=== PATIENT | female | born 1950 | race Caucasian/White ===

== ENCOUNTER → 2016-04-22 | Outpatient (CLI) | payer OTHER, MEDICARE ==
[~2016-04-22] MED LIST: *BLDWK7; *MAMMOGRAM; /PANT40TA PO; AMO500 PO; AMOXIL875 PO; ANAPROX DS PO; ASPI325T PO; AUG875 PO; BACTRIMDS PO; CIPRO250 PO; COLA100C2; DARVOCET-N PO; ENALAPRIL/HCTZ; FEVE325S PO; FLONASESPR NASAL; KEFLEX250 PO; LOPR50TA PO; MEVACOR40 PO; MILKSUS; MULTIVIT; PAIN325T PO; PERC5TAB8; POTA20TA2; TYLENOL#3 PO; VALTREX100 PO; [UNRECOGNIZED DRUG - OTHER]; [UNRECOGNIZED DRUG - OTHER] PO
[2016-04-22 19:28] LABS: ALKALINE PHOSPHATASE 66 U/L (45-117); ALT/SGPT 29 U/L (12-78); ANION GAP 9 MEQ/L (8-16); AST/SGOT 26 U/L (15-37); BILIRUBIN,TOTAL 0.8 MG/DL (0.2-1.0); BLOOD UREA NITROGEN 18 MG/DL (7-18); CALCIUM LEVEL 9.1 MG/DL (8.8-10.2); CARBON DIOXIDE LEVEL 29 MEQ/L (21-32); CHLORIDE LEVEL 107 MEQ/L (98-107); CHOLESTEROL LEVEL 268 MG/DL (<200); CREATININE FOR GFR 0.81 MG/DL (0.55-1.02); GLOMERULAR FILTRATION RATE > 60.0 (>45); GLUCOSE, FASTING 88 MG/DL (80-110); POTASSIUM SERUM 3.9 MEQ/L (3.5-5.1); SODIUM LEVEL 145 MEQ/L (136-145); TRIGLYCERIDES LEVEL 64 MG/DL (<150)
[2016-04-22 19:29] LABS: ALBUMIN 3.9 GM/DL (3.2-5.2); TOTAL PROTEIN 6.9 GM/DL (6.4-8.2)
== END ==
LOC: M WUC 08:15
PROVIDERS: ATTEND Family Medicine
DX: I10 Essential (primary) hypertension (principal); E78.2 Mixed hyperlipidemia; E55.9 Vitamin D deficiency, unspecified

== ENCOUNTER → 2016-04-25 | Outpatient (REF) | payer BC, MEDICARE, OTHER ==
[2016-04-25 12:48] LABS: MEAN CORPUSCULAR HEMOGLOBIN 29.5 pg (27.0-33.0); MEAN CORPUSCULAR HGB CONC 33.9 g/dl (32.0-36.5); RED CELL DISTRIBUTION WIDTH 12.4 % (11.5-14.5); WHITE BLOOD COUNT 8.8 K/mm3 (4.0-10.0)
[2016-04-25 13:08] LABS: FOLATE > 24.0 NG/ML (>5.4); VITAMIN B12 LEVEL 637 PG/ML (247-911)
[2016-04-25 13:09] LABS: FREE T4 1.11 NG/DL (0.76-1.46)
== END ==
LOC: M SFHCADAM 10:03
PROVIDERS: ATTEND Family Medicine
DX: F01.50 Vascular dementia, unspecified severity, without behavioral disturbance, psychotic disturbance, mood disturbance, and anxiety (principal); Z87.39 Personal history of other diseases of the musculoskeletal system and connective tissue; I10 Essential (primary) hypertension; J30.9 Allergic rhinitis, unspecified
CPT/HCPCS: 82607; 82746; 84439; 84443; 85027; 85652; 90662; 90670; G0008; G0009; G0463

== ENCOUNTER → 2016-05-04 | Outpatient (CLI) | payer MEDICARE, OTHER ==
--- NOTE | 2016-05-05 08:27 | REP ---
MRI BRAIN WITHOUT CONTRAST: HISTORY: Vascular dementia. Scattered punctate areas of increased signal intensity on T2-weighted images are present in the periventricular and subcortical white matter and jorge. This represents small vessel ischemic disease. There is no intraparenchymal hemorrhage, infarct, mass or midline shift. The sella turcica is empty. The ventricular system and cortical sulci as well as subarachnoid space in the posterior fossa are dilated consistent with mild volume loss. There is no extracerebral collection. A retention cyst is present in the left maxillary sinus. IMPRESSION: 1. Minimal small vessel ischemic disease. 2. Mild volume loss. Signed by Kt Stokes MD 05/05/2016 08:29 A
== END ==
LOC: M RAD 17:25
PROVIDERS: ATTEND Family Medicine
DX: F01.50 Vascular dementia, unspecified severity, without behavioral disturbance, psychotic disturbance, mood disturbance, and anxiety (principal)
CPT/HCPCS: 70553; A9576

== ENCOUNTER → 2016-08-24 | Outpatient (REF) | payer OTHER ==
[2016-08-24 15:14] LABS: BASO # 0.1 K/mm3 (0.0-0.2); BASO % 0.6 % (0.0-1.0); EOS % 0.2 % (0.0-3.0); LARGE UNSTAINED CELL # 0.6 K/mm3 (0.0-0.4); LARGE UNSTAINED CELL % 6.1 % (0.0-4.0); LYMPH # 3.1 K/mm3 (1.5-4.5); LYMPH % 26.5 % (24.0-44.0); MEAN CORPUSCULAR HEMOGLOBIN 30.2 pg (27.0-33.0); MEAN CORPUSCULAR VOLUME 88.7 fl (80.0-96.0); MONO # 0.8 K/mm3 (0.0-0.8); MONO % 8.4 % (0.0-5.0); NEUTROPHILS # 5.5 K/mm3 (1.8-7.7); NEUTROPHILS % 58.1 % (36.0-66.0); PLATELET COUNT, AUTOMATED 308 k/mm3 (150-450); RED CELL DISTRIBUTION WIDTH 12.6 % (11.5-14.5); WHITE BLOOD COUNT 9.5 K/mm3 (4.0-10.0)
[2016-08-24 15:27] LABS: ALBUMIN 4.2 GM/DL (3.2-5.2); ALBUMIN/GLOBULIN RATIO 1.31 (1.00-1.93); ALKALINE PHOSPHATASE 68 U/L (45-117); ALT/SGPT 33 U/L (12-78); ANION GAP 8 MEQ/L (8-16); AST/SGOT 28 U/L (15-37); BILIRUBIN,TOTAL 0.8 MG/DL (0.2-1.0); BLOOD UREA NITROGEN 13 MG/DL (7-18); CALCIUM LEVEL 9.8 MG/DL (8.8-10.2); CARBON DIOXIDE LEVEL 32 MEQ/L (21-32); CHLORIDE LEVEL 101 MEQ/L (98-107); CREATININE FOR GFR 0.79 MG/DL (0.55-1.02); FREE T4 1.15 NG/DL (0.76-1.46); GLOMERULAR FILTRATION RATE > 60.0 (>45); GLUCOSE, FASTING 98 MG/DL (80-110); POTASSIUM SERUM 3.4 MEQ/L (3.5-5.1); SODIUM LEVEL 141 MEQ/L (136-145); TOTAL PROTEIN 7.4 GM/DL (6.4-8.2)
[2016-08-24 15:41] LABS: ERYTHROCYTE SEDIMENTATION RATE 10 mm/hr (0-30)
[2016-08-24 15:49] LABS: VITAMIN B12 LEVEL 563 PG/ML (247-911)
[2016-08-24 15:50] LABS: FOLATE > 24.0 NG/ML (>5.4)
[2016-08-29 00:06] LABS: VITAMIN E LEVEL 12.4 mg/L (6.5-21.5)
== END ==
LOC: M LABNEURO 13:22
PROVIDERS: ATTEND Psychiatry & Neurology Neurology
DX: R41.3 Other amnesia (principal); Z13.29 Encounter for screening for other suspected endocrine disorder; Z13.1 Encounter for screening for diabetes mellitus; Z11.3 Encounter for screening for infections with a predominantly sexual mode of transmission; Z79.899 Other long term (current) drug therapy

== ENCOUNTER → 2017-04-04 | Outpatient (REF) | payer OTHER, MEDICARE ==
[2017-04-04 20:50] LABS: HEMATOCRIT 39.9 % (36.0-47.0); HEMOGLOBIN 13.2 g/dl (12.0-16.0); MEAN CORPUSCULAR HEMOGLOBIN 29.1 pg (27.0-33.0); MEAN CORPUSCULAR HGB CONC 33.1 g/dl (32.0-36.5); MEAN CORPUSCULAR VOLUME 88.1 fl (80.0-96.0); PLATELET COUNT, AUTOMATED 255 10^3/uL (150-450); RED BLOOD COUNT 4.53 10^6/uL (4.00-5.40); RED CELL DISTRIBUTION WIDTH 12.3 % (11.5-14.5); WHITE BLOOD COUNT 9.1 10^3/uL (4.0-10.0)
[2017-04-04 21:20] LABS: ALBUMIN/GLOBULIN RATIO 1.33 (1.00-1.93); ALKALINE PHOSPHATASE 79 U/L (45-117); ALT/SGPT 34 U/L (12-78); ANION GAP 5 MEQ/L (8-16); AST/SGOT 25 U/L (7-37); BILIRUBIN,TOTAL 0.3 MG/DL (0.2-1.0); BLOOD UREA NITROGEN 23 MG/DL (7-18); CALCIUM LEVEL 9.1 MG/DL (8.8-10.2); CARBON DIOXIDE LEVEL 35 MEQ/L (21-32); CHLORIDE LEVEL 102 MEQ/L (98-107); CHOLESTEROL LEVEL 252 MG/DL (<200); CHOLESTEROL RISK RATIO 3.876 (<5); CREATININE FOR GFR 0.71 MG/DL (0.55-1.02); FREE T4 0.89 NG/DL (0.76-1.46); GLOMERULAR FILTRATION RATE > 60.0 (>45); GLUCOSE, FASTING 88 MG/DL (80-110); HDL CHOLESTEROL 65 MG/DL (>40); LDL CHOLESTEROL 122.8 MG/DL (<100); NON-HDL-C 187 MG/DL; POTASSIUM SERUM 3.7 MEQ/L (3.5-5.1); SODIUM LEVEL 142 MEQ/L (136-145); TRIGLYCERIDES LEVEL 321 MG/DL (<150)
== END ==
LOC: M SFHCADAM 11:17
DX: F01.50 Vascular dementia, unspecified severity, without behavioral disturbance, psychotic disturbance, mood disturbance, and anxiety (principal); I11.9 Hypertensive heart disease without heart failure; E78.2 Mixed hyperlipidemia
CPT/HCPCS: 84443

== ENCOUNTER → 2018-06-25 | Outpatient (REF) | payer MEDICARE ==
[~2018-06-25] MED LIST changes: -/PANT40TA PO; +PROT1TAB2 PO
== END ==
LOC: M SFHCADAM 11:30
PROVIDERS: ATTEND Family Medicine
DX: F01.50 Vascular dementia, unspecified severity, without behavioral disturbance, psychotic disturbance, mood disturbance, and anxiety (principal); I25.10 Atherosclerotic heart disease of native coronary artery without angina pectoris; E78.2 Mixed hyperlipidemia; Z87.39 Personal history of other diseases of the musculoskeletal system and connective tissue; E55.9 Vitamin D deficiency, unspecified; R53.83 Other fatigue; Z53.8 Procedure and treatment not carried out for other reasons

== ENCOUNTER → 2018-06-26 | Outpatient (REF) | payer MEDICARE ==
[2018-06-26 18:08] LABS: HEMOGLOBIN 14.3 g/dl (12.0-15.5); MEAN CORPUSCULAR HEMOGLOBIN 29.1 pg (27.0-33.0); MEAN CORPUSCULAR HGB CONC 33.3 g/dl (32.0-36.5); MEAN CORPUSCULAR VOLUME 87.6 fl (80.0-96.0); PLATELET COUNT, AUTOMATED 263 10^3/uL (150-450); RED BLOOD COUNT 4.91 10^6/uL (4.00-5.40); WHITE BLOOD COUNT 6.7 10^3/uL (4.0-10.0)
[2018-06-26 18:23] LABS: ALT/SGPT 33 U/L (12-78); BILIRUBIN,TOTAL 0.7 MG/DL (0.2-1.0); BLOOD UREA NITROGEN 17 MG/DL (7-18); CALCIUM LEVEL 9.2 MG/DL (8.8-10.2); CARBON DIOXIDE LEVEL 31 MEQ/L (21-32); CHLORIDE LEVEL 101 MEQ/L (98-107); CHOLESTEROL LEVEL 240 MG/DL (<200); CHOLESTEROL RISK RATIO 3.809 (<5); CREATININE FOR GFR 0.87 MG/DL (0.55-1.30); FREE T4 1.06 NG/DL (0.76-1.46); GLOMERULAR FILTRATION RATE > 60.0 (>45); GLUCOSE, FASTING 74 MG/DL (70-100); HDL CHOLESTEROL 63 MG/DL (>40); LDL CHOLESTEROL 150 MG/DL (<100); NON-HDL-C 177 MG/DL; POTASSIUM SERUM 3.9 MEQ/L (3.5-5.1); SODIUM LEVEL 138 MEQ/L (136-145); TOTAL PROTEIN 7.1 GM/DL (6.4-8.2); TRIGLYCERIDES LEVEL 135 MG/DL (<150)
[2018-06-26 18:24] LABS: TOTAL 25(OH) VITAMIN D 22.3 NG/ML (30.0-100.0)
[2018-06-26 18:25] LABS: FOLATE 22.8 NG/ML (>5.4); VITAMIN B12 LEVEL 407 PG/ML (247-911)
[2018-06-26 19:10] LABS: ERYTHROCYTE SEDIMENTATION RATE 10 mm/hr (0-30)
== END ==
LOC: M SFHCADAM 07:38
PROVIDERS: ATTEND Family Medicine
DX: F01.50 Vascular dementia, unspecified severity, without behavioral disturbance, psychotic disturbance, mood disturbance, and anxiety (principal); I25.10 Atherosclerotic heart disease of native coronary artery without angina pectoris; E78.2 Mixed hyperlipidemia; E55.9 Vitamin D deficiency, unspecified; R53.83 Other fatigue; Z87.39 Personal history of other diseases of the musculoskeletal system and connective tissue

== ENCOUNTER 2019-05-25 12:34 | Inpatient (IN) | payer MEDICARE ==
[~2019-05-25] VITALS: Ht 167.6 cm; Wt 46.5 kg
[2019-05-25] MEDS ORDERED: ENAL10TA2 PO (12:51)
[2019-05-25] MEDS ORDERED: ECOT81TA5 PO (12:51)
[2019-05-25] MEDS ORDERED: PRAV20TA2 PO (12:51)
[2019-05-25] MEDS ORDERED: NS 1,000 ML IV ONE ×2 (13:00→13:30)
[2019-05-25 13:13] LABS: BASO # 0.1 10^3/uL (0.0-0.2); BASO % 0.3 % (0.0-1.0); HEMATOCRIT 46.5 % (36.0-47.0); HEMOGLOBIN 15.1 g/dl (12.0-15.5); LYMPH # 1.6 10^3/uL (1.5-5.0); LYMPH % 5.7 % (24.0-44.0); MEAN CORPUSCULAR HGB CONC 32.5 g/dl (32.0-36.5); MEAN CORPUSCULAR VOLUME 89.3 fl (80.0-96.0); MONO # 1.4 10^3/uL (0.0-0.8); MONO % 5.2 % (0.0-5.0); PLATELET COUNT, AUTOMATED 313 10^3/uL (150-450); RED BLOOD COUNT 5.21 10^6/uL (4.00-5.40); WHITE BLOOD COUNT 27.2 10^3/uL (4.0-10.0)
[2019-05-25 13:40] LABS: ALBUMIN 3.8 GM/DL (3.2-5.2); BILIRUBIN,DIRECT 0.1 MG/DL (0.0-0.2); BILIRUBIN,TOTAL 0.8 MG/DL (0.2-1.0); CK-MB VALUE MASS 12.1 NG/ML (<3.6); MB/CK RELATIVE INDEX 1.82 (< OR =4); TOTAL PROTEIN 7.7 GM/DL (6.4-8.2); TROPONIN I 0.04 NG/ML (< 0.10)
[2019-05-25] MEDS ORDERED: metroNIDAZOLE 500 MG in IV 1 EA IV ONE (13:45)
--- NOTE | 2019-05-25 14:15 | REP ---
CHEST: Single view. There is no evidence of acute infiltrate. No pleural effusion is seen. The heart is normal in size. The mediastinal silhouette is unremarkable. The visualized osseous structures are intact. Metallic clips are seen in the left axillary region. IMPRESSION: No acute pulmonary disease. Electronically Signed by Scotty Marie MD 05/25/2019 06:40 P
--- NOTE | 2019-05-25 14:32 | REP ---
CT ABDOMEN/PELVIS WITHOUT CONTRAST: CT abdomen/pelvis performed without oral or IV contrast. Sagittal and coronal reconstruction images are performed. Visualized lung bases demonstrate chronic fibrotic change. Liver, spleen, adrenals, pancreas, and kidneys are grossly unremarkable. No renal calculus is seen. No hydronephrosis is seen. Mild atherosclerotic calcifications are seen of the abdominal aorta without aneurysm. I see no gross adenopathy. There is no free air or free fluid. The appendix appears normal. No obvious pelvic mass is seen. The rectum appears somewhat thickened, and there is surrounding streaky density in the perirectal fat. This may represent rectal inflammation. Urinary bladder is mildly distended and grossly unremarkable. There are degenerative changes of the spine. There is evidence of prior fusion at the L4-5 level. IMPRESSION: Possible thickening of the rectal wall with surrounding inflammatory change. Otherwise, no acute findings are visualized in the abdomen or pelvis. Electronically Signed by Scotty Marie MD 05/25/2019 06:41 P
[2019-05-25] MEDS ORDERED: NS 1,000 ML IV SCH (14:45)
[2019-05-25] MEDS ORDERED: CIPROFLOXACIN 400 MG in IV 1 EA IV ONE (16:00)
[2019-05-25 17:18] VITALS: BP 108/50
[2019-05-25] MEDS: LR 1,000 ML IV SCH ×2 (17:39→21:27)
--- NOTE | 2019-05-25 20:41 | HPE ---
DATE OF ADMISSION: 05/25/2019 PRINCIPAL DIAGNOSIS: Colitis with hypotension and dehydration. PRIMARY CARE PROVIDER: Bryan Downey MD HISTORY: Lisandra Moreno is a 68-year-old with advancing dementia who has been followed by [facility] with an MRI 04/2016 showing small vessel disease. Mini mental status exam scoring a 23/30 on 08/2016 and she has not returned for further neurological assessment. Her dementia has been declining despite medical therapy. Her by mouth intake is progressively worse over the past year, she has been losing weight and becoming increasingly dependent on her for all of her activities of daily living. She was having profuse diarrhea for 2-3 days without pus, blood, or mucus. She got lightheaded and weak when she stood up. Her brought her to the emergency room, she was hypotensive and shocky and required fluid resuscitation. CT of the abdomen and pelvis shows a colitis. She is being admitted for treatment of this. Her past history shows hypertension with a white coat component, minimal coronary artery disease, cardiac catheterization 10/2010 showed minimal 20-25% left anterior descending (LAD) in first diagonal, irregularities but no hemodynamic stenosis, ejection fraction of 70%. She has prediabetes, hyperlipidemia, and allergic rhinitis. She has chronic back pain from arthritis. She was diagnosed with polymyalgia rheumatica on 12/2012 and was on steroids which she weaned off without recurrence. SURGICAL HISTORY: Lumbar fusion L4-5 2008, lymph node removed from left arm 2003, breast biopsy left side 2004, cardiac catheterization 2010 as noted above. She has declined colonoscopies 2010, 2012, 2013, 2015, and 2016. We stopped offering them when her dementia progressed after 2016. FAMILY HISTORY: Father of hepatic carcinoma at 65, mother at 91, she had Alzheimer's disease, history of fractured hip, and hypertension. She has a brother who had a myocardial infarction (NC) and cardiac thrombus and hyperlipidemia. SOCIAL HISTORY: She is . Never smoked. She does not drink any alcohol. Her , Kilo, provides all of her care now. ALLERGIES: SULFA causes a rash, MEVACOR caused myalgias, AUGMENTIN caused nausea, ERYTHROMYCIN caused nausea, ATORVASTATIN caused myalgias. Aricept and Namenda really did not provide any clinical benefit, she did restart these recently, but they have not done anything for her. MEDICATIONS: - ibuprofen [id number] as needed - aspirin 81 mg daily - enalapril 10 mg daily - hydrochlorothiazide 25 mg daily - pravastatin 20 mg daily - Vaseretic 10-25 one daily - Namenda 10 mg twice a day - donepezil 10 mg daily REVIEW OF SYSTEMS: No rectal bleeding, pus, or mucus. No vomiting, chest pain, shortness of breath, fever, or chills. She has lost about 15 pounds in the last year. General appearance: Chronically ill-appearing, noticeably thinner than the last time I saw her in January. She awakens to questions but is otherwise drowsy. HEENT: Pupils equal, round and reactive to light. Tympanic membrane and oropharynx normal. Neck: No masses. Lungs: Clear. Heart: Regular rhythm. Abdomen: Soft, nontender, no masses, abdominal distention. Extremities: Without clubbing, cyanosis, or edema. LABORATORY DATA: White count 27,000 with 88% neutrophils, hemoglobin 15.1, platelets 313, sodium 146, potassium 4.0, BUN 29, creatinine 5.1, glucose 154, initial lactic acid 4.1, repeat 3.0, CK 665, liver functions essentially normal, albumin 3.1 (hydrated). Note: Her baseline renal function is normal with a last creatinine of 0.9. CT abdomen and pelvis shows possible thickening of the rectal wall with surrounding inflammatory change. Chest x-ray shows no active disease. IMPRESSION: Proctitis, suspect a viral enteritis. She is dehydrated in acute kidney injury and showing hypotensive shock, blood pressure has responded to fluid resuscitation, the last blood pressure 116/57. PLAN: 1. Admit her to a medical/surgical bed. Medical Orders for Life Sustaining Treatment (MOLST) state DO NOT RESUSCITATE/DO NOT INTUBATE (see below) so will not put her on telemetry. Fluid resuscitation with Lactated Ringer's has been ordered. Repeat metabolic profile this evening and then daily. Expect renal function will respond to fluids. Will hold her angiotensin converting enzyme (NIXON) inhibitor, as well as obviously her nonsteroidal. 2. Hyperlipidemia. Hold her pravastatin until her situation improves. 3. Dementia. This is severe and progressing. Her oral intake has gotten progressively worse over the last year and I spent some time with Kilo, her , talking about this being a sign of end-stages of dementia. Towards that end we established her advanced directives, we made out a Medical Orders for Life Sustaining Treatment (MOLST) form. She is DO NOT RESUSCITATE/DO NOT INTUBATE, no tube feeding; he would like a trial of noninvasive ventilation if necessary, as well as IV fluids and antibiotics if necessary. 4. Hypertension. Hold her Vaseretic in the face of her hypotension and dehydration. 5. Colitis/proctitis. Expected to see more in her colon on the CT scan, I was told she had a colitis but careful review of the report indicates it is just a proctitis, an unusual cause of diarrhea. Stool for gastrointestinal (GI) panel has been ordered. She is on IV Flagyl and Cipro for now.
[2019-05-25 20:42] LABS: CALCIUM LEVEL 8.7 MG/DL (8.8-10.2); CREATININE FOR GFR 3.22 MG/DL (0.55-1.30); GLOMERULAR FILTRATION RATE 15.2 (>45); POTASSIUM SERUM 3.6 MEQ/L (3.5-5.1)
--- NOTE | 2019-05-25 20:49 | ECGEPIP ---
[facility] - ED Test Date: 2019-05-25 Pat Name: FLORENCE REYNOLDS Department: Room: [place] [address] Gender: Female Rn Bsn: : 1950 Requested By: VIRGINIA Rehman Order Number: [id number] Reading MD: Boni Cornelius Measurements Intervals [place] Rate: 91 P: 39 AR: 136 QRS: -67 QRSD: 85 T: 75 QT: 344 QTc: 425 Interpretive Statements SINUS RHYTHM LEFT AXIS DEVIATION NSTTW ABNORMALITIES NO PRIORS FOR COMPARISON Electronically Signed on 05-25-2019 20:49:25 EST by Boni Cornelius
[2019-05-25] MEDS: HEPARIN SOD (PORCINE) 5000 UNITS/ML VIAL (J1644 PER 1000UNITS) SQ SCH (21:27)
[2019-05-25] MEDS: metroNIDAZOLE 500 MG in IV 1 EA IV SCH (21:27)
[2019-05-25 22:00] VITALS: BP 99/43
[2019-05-26 02:00] VITALS: BP 105/56
[2019-05-26] MEDS: metroNIDAZOLE 500 MG in IV 1 EA IV SCH ×3 (05:03→21:00)
[2019-05-26] MEDS: LR 1,000 ML IV SCH ×3 (05:03→18:40)
[2019-05-26 06:00] VITALS: BP 115/67
[2019-05-26 06:22] LABS: HEMATOCRIT 34.1 % (36.0-47.0); MEAN CORPUSCULAR HEMOGLOBIN 29.8 pg (27.0-33.0); MEAN CORPUSCULAR HGB CONC 33.1 g/dl (32.0-36.5); RED BLOOD COUNT 3.79 10^6/uL (4.00-5.40); WHITE BLOOD COUNT 19.9 10^3/uL (4.0-10.0)
[2019-05-26 06:26] LABS: HEMOGLOBIN 11.3 g/dl (12.0-15.5); PLATELET COUNT, AUTOMATED 169 10^3/uL (150-450)
[2019-05-26 06:43] LABS: CALCIUM LEVEL 8.5 MG/DL (8.8-10.2); CREATININE FOR GFR 2.11 MG/DL (0.55-1.30); GLOMERULAR FILTRATION RATE 24.8 (>45); POTASSIUM SERUM 3.2 MEQ/L (3.5-5.1)
[2019-05-26 08:14] LABS: MAGNESIUM LEVEL 2.2 MG/DL (1.8-2.4)
[2019-05-26] MEDS: HEPARIN SOD (PORCINE) 5000 UNITS/ML VIAL (J1644 PER 1000UNITS) SQ SCH ×2 (09:33→20:58)
--- NOTE | 2019-05-26 10:29 | IPNPDOC ---
Subjective Date Seen The patient was seen on 05/26/19. Subjective Chief Complaint/HPI RANDY, diarrhea Events since last encounter Tolerating po well. has had no further episodes of diarrhea. Constitutional: Reports: Weakness; Denies: Chills, Fever, Night Sweats Pulmonary: Denies: Dyspnea, Cough Cardiovascular: Denies: Chest Pain, Palpitations, Orthopnea, Paroxysmal Noc. Dyspnea, Lt Headedness Gastrointestinal: Reports: Other Symptoms (decreased appetite); Denies: Nausea, Vomiting, Abdominal Pain, Diarrhea, Constipation Psych: Reports: Mood Normal; Denies: Depression, Memory Issues Objective Physical Examination General Exam: Positive: Alert, No Acute Distress ENT Exam: Positive: Atraumatic, Mucous membr. moist/pink, Pharynx Normal Neck Exam: Positive: Supple; Negative: JVD, thyromegaly Chest Exam: Positive: Clear to auscultation, Normal air movement Heart Exam: Positive: Rate Normal, Regular Rhythm, Normal S1, Normal S2; Negative: Murmurs, Rubs Abdomen Exam: Positive: Normal bowel sounds, Soft; Negative: Tenderness, Hepatospenomegaly Female Exam: Positive: Nl Ext Genitalia; Negative: Lesions, Discharge, Odor, Tenderness Psych Exam: Positive: Mental status NL, Mood NL, Oriented x 3 Assessment /Plan Problems (1) RANDY (acute kidney injury) Status: Acute Problem Text: favor 2 dehydration, ACEI 3/2 Na to 151-change LR to 1/2 NS (2) Lactic acidosis Status: Resolved Response to Treatment: Improving (3) Diarrhea Status: Acute Response to Treatment: Improving Problem Text: GI PCR ordered, but no BM since admission (4) Dehydration Status: Acute Response to Treatment: Improving (5) Dementia Status: Chronic Problem Text: is primary caregiver. She has shown some weakness and lethargy. Will have PT eval. Plan/VTE VTE Prophylaxis Ordered?: Yes VS, I&O, 24H, Fishbone Vital Signs/I&O Vital Signs Date Time Temp Pulse Resp B/P (MAP) Pulse Ox O2 Delivery O2 Flow Rate FiO2 05/26/19 06:00 98.0 77 18 115/67 (83) 100 Room Air I&O- Last 24 Hours up to 6 AM 05/26/19 06:00 Intake Total 2650 ml Output Total 0 ml Balance 2650 ml Laboratory Data 24H LABS Laboratory Tests 2 05/25/19 12:59: Immature Granulocyte % (Auto) 0.8, Neutrophils (%) (Auto) 88.0H, Lymphocytes (%) (Auto) 5.7L, Monocytes (%) (Auto) 5.2H, Eosinophils (%) (Auto) 0.0, Basophils (%) (Auto) 0.3, Neutrophils # (Auto) 24.0H, Lymphocytes # (Auto) 1.6, Monocytes # (Auto) 1.4H, Eosinophils # (Auto) 0.0, Basophils # (Auto) 0.1, Nucleated Red Blood Cells % (auto) 0.0, Lactic Acid Level 4.1*H, Magnesium Level 3.0H, Total Bilirubin 0.8, Direct Bilirubin 0.1, Aspartate Amino Transf (AST/SGOT) 39H, Alanine Aminotransferase (ALT/SGPT) 23, Alkaline Phosphatase 115, Total Creatine Kinase 665H, Creatine Kinase MB 12.1H, Creatine Kinase MB Relative Index 1.82, Troponin I 0.04, Total Protein 7.7, Albumin 3.8, Albumin/Globulin Ratio 0.97L, Lipase 183 05/25/19 13:00: POC Glucose (Misc Panel) 154H, POC Sodium (Misc Panel) 146H, POC Potassium (Misc Panel) 4.0, POC Chloride (Misc Panel) 104, POC Total CO2 (Misc Panel) 29.0H, POC Blood Urea Nitrogen (Misc Panel 73H, POC Ionized Calcium (Misc Panel) 4.8, POC Creatinine (Misc Panel) 5.1H, POC Hematocrit (Misc Panel) 45.0 05/25/19 15:42: Urine Color YELLOW, Urine Appearance HAZY, Urine pH 5.0, Urine Specific [place] 1.016, Urine Protein 1+H, Urine Glucose (UA) NEGATIVE, Urine Ketones NEGATIVE, Urine Blood 2+H, Urine Nitrite NEGATIVE, Urine Bilirubin NEGATIVE, Urine Urobilinogen 0.2, Urine Leukocyte Esterase NEGATIVE, Urine WBC (Auto) 1, Urine RBC (Auto) 6H, Urine Hyaline Casts (Auto) 4, Urine Bacteria (Auto) NEGATIVE, Urine Squamous Epithelial Cells 0, Urine Amorphous Sediment SMALLH, Urine Mucus (Auto) SMALL, Urine Sperm (Auto) 05/25/19 17:16: Lactic Acid Followup at 4 Hours 2.1*H 05/25/19 20:16: Anion Gap 5L, Glomerular Filtration Rate 15.2L, Calcium Level 8.7L 05/26/19 05:53: Anion Gap 4L, Glomerular Filtration Rate 24.8L, Calcium Level 8.5L, Nucleated Red Blood Cells % (auto) 0.0, Magnesium Level 2.2 CBC/BMP Laboratory Tests 05/25/19 12:59 05/25/19 20:16 05/26/19 05:53 Microbiology Microbiology 05/25/19 Blood Culture, Received Pending 05/25/19 Blood Culture, Received Pending Vilma iHguera May 26, 2019 10:29 Tim Perez M.D. May 26, 2019 18:26
[2019-05-26] MEDS ORDERED: CIPROFLOXACIN 400 MG in IV 1 EA IV SCH (10:30)
[2019-05-26] MEDS ORDERED: POTASSIUM CHLORIDE 10 MEQ SR TABLET PO ONE (11:00)
[2019-05-26 11:30] VITALS: BP 111/78
[2019-05-26] MEDS: CIPROFLOXACIN 200 MG in IV 1 EA IV SCH (13:04)
[2019-05-26 14:00] VITALS: BP 109/83
[2019-05-26 16:00] VITALS: BP 123/69
[2019-05-26] MEDS ORDERED: POTASSIUM CHLORIDE INJ 20 MEQ in NS 0.45% 1,000 ML IV SCH (18:30)
[2019-05-26] MEDS: KCL 20MEQ IN 0.45NS 1000ML 1,000 ML IV SCH (19:11)
[2019-05-26 22:00] VITALS: BP 102/55
[2019-05-27] MEDS: KCL 20MEQ IN 0.45NS 1000ML 1,000 ML IV SCH (03:59)
[2019-05-27] MEDS: metroNIDAZOLE 500 MG in IV 1 EA IV SCH ×2 (05:29→13:36)
[2019-05-27 06:00] VITALS: BP 109/58
[2019-05-27] MEDS: CIPROFLOXACIN 200 MG in IV 1 EA IV SCH (06:36)
[2019-05-27 07:15] LABS: HEMATOCRIT 34.5 % (36.0-47.0); HEMOGLOBIN 11.4 g/dl (12.0-15.5); MEAN CORPUSCULAR HEMOGLOBIN 29.3 pg (27.0-33.0); MEAN CORPUSCULAR VOLUME 88.7 fl (80.0-96.0); PLATELET COUNT, AUTOMATED 169 10^3/uL (150-450); RED BLOOD COUNT 3.89 10^6/uL (4.00-5.40); WHITE BLOOD COUNT 14.3 10^3/uL (4.0-10.0)
[2019-05-27 07:38] LABS: CALCIUM LEVEL 8.7 MG/DL (8.8-10.2); CREATININE FOR GFR 1.03 MG/DL (0.55-1.30); GLOMERULAR FILTRATION RATE 56.7 (>45); POTASSIUM SERUM 3.7 MEQ/L (3.5-5.1)
--- NOTE | 2019-05-27 08:47 | IPN ---
DATE: 05/27/2019 Lisandra is feeling better. Her labs were all improving. She is taking better oral intake. Her does not feel that she is ready for discharge yet. Blood pressure 109/58, pulse 64, respirations 18, 97% oxygen saturation. HEENT: Unremarkable. Lungs: Clear. Heart: Regular without murmur. Abdomen: Soft. Nontender. No masses. No peripheral edema. LABS: White count is down to 14.3, hemoglobin 11.4. Creatinine is down to 1.0. IMPRESSION: 1. Acute kidney injury secondary to dehydration. Renal function is back to baseline with adequate hydration. 2. Diarrhea. This apparently is resolved. She has not had a stool since she has arrived. 3. Dementia. This is an ongoing progressive problem. 4. Leukocytosis. Suspected she might have a proctitis. She is on IV Cipro and IV Flagyl. Will continue this until tomorrow and then she should probably be able to be discharged without any supplemental antibiotic. 5. Severe malnutrition. She has had a 15 pound weight loss. Body Mass Index (BMI) is only 16.5. She has generalized weakness. On examination, she has significant muscle wasting in her thighs and upper arms. Anticipate discharge tomorrow.
[2019-05-27] MEDS: HEPARIN SOD (PORCINE) 5000 UNITS/ML VIAL (J1644 PER 1000UNITS) SQ SCH ×2 (09:15→20:02)
[2019-05-27 09:27] VITALS: BP 116/58
[2019-05-27 15:39] VITALS: BP 115/58
[2019-05-27 22:00] VITALS: BP 116/59
[2019-05-28 06:00] VITALS: BP 149/74
[2019-05-28 06:24] LABS: HEMATOCRIT 33.9 % (36.0-47.0); HEMOGLOBIN 11.2 g/dl (12.0-15.5); MEAN CORPUSCULAR VOLUME 87.8 fl (80.0-96.0); PLATELET COUNT, AUTOMATED 177 10^3/uL (150-450); RED BLOOD COUNT 3.86 10^6/uL (4.00-5.40); WHITE BLOOD COUNT 8.8 10^3/uL (4.0-10.0)
[2019-05-28 06:47] LABS: BLOOD UREA NITROGEN 21 MG/DL (7-18); CALCIUM LEVEL 8.2 MG/DL (8.8-10.2); CARBON DIOXIDE LEVEL 30 MEQ/L (21-32); CHLORIDE LEVEL 112 MEQ/L (98-107); CREATININE FOR GFR 0.77 MG/DL (0.55-1.30); GLOMERULAR FILTRATION RATE > 60.0 (>45); GLUCOSE, FASTING 97 MG/DL (70-100); POTASSIUM SERUM 3.5 MEQ/L (3.5-5.1); SODIUM LEVEL 147 MEQ/L (136-145)
--- NOTE | 2019-05-28 08:50 | DSES ---
DATE OF ADMISSION: 05/25/2019 DATE OF DISCHARGE: PRINCIPAL DIAGNOSIS: Acute kidney injury secondary to dehydration. SECONDARY DIAGNOSES: 1. Colitis presumably viral. 2. Dementia. 3. Severe malnutrition. HISTORY: Lisandra Moreno has dementia. She has been increasingly debilitated by this. Oral intake is poor. She developed diarrhea, nausea and vomiting, and presented to the emergency room orthostatic, hypotensive and acute kidney injury. See details in history and physical on admission. HOSPITAL COURSE: She was re-hydrated and her acute kidney injury resolved. Renal function went back to baseline. She was placed on Cipro and Flagyl on admission. This was discontinued after gastrointestinal (GI) panel returned negative. Her oral intake was satisfactory and day of discharge she is stable to go home. She needs a walker, which will send to [facility]. On day of discharge, her blood pressure was 149/74, pulse 65. She is afebrile. She is alert and conversant, in no distress. Quite talkative and bright today. HEENT: Unremarkable. She looks malnourished with wasting of the large muscle groups of the buttocks, thighs and arms. Lungs clear. Heart regular rhythm. Abdomen soft, nontender. No peripheral edema. Moves arms and legs with equal strength. LABS: Today, white count 8.8, hemoglobin 112, platelets 177. Sodium 147, potassium 4.5, BUN 21, creatinine 0.2, glucose 97. CT of the abdomen and pelvis showed some rectal inflammation. DISPOSITION: She will be discharged home in improved and stable condition. She will have followup in my office in a week. Her activity as tolerated and diet as tolerated. Her dementia is starting to effect her oral intake, and I discussed with her , Kilo, that this is often a sign of "terminal drop" that precedes dementia reaching its end stage, and he is aware and understands and accepts this. Her medicines will continue to be aspirin 81 mg daily, Vasotec 10 mg daily, pravastatin 20 mg daily. She previously has tried to take and has been able to tolerate medications for dementia. At the time of this dictation, there are no pending labs.
[2019-05-28] MEDS: HEPARIN SOD (PORCINE) 5000 UNITS/ML VIAL (J1644 PER 1000UNITS) SQ SCH (09:33)
[2019-05-28 10:01] VITALS: BP 129/63
== END 2019-05-28 11:25 | disposition home health service (06) | DRG 393 ==
LOC: M ED 12:34 → M ED INP 15:15 → ENRESERV 15:38 → M MS5PR 16:35
PROVIDERS: ADMIT Family Medicine; ATTEND Family Medicine
DX: K62.89 Other specified diseases of anus and rectum (principal); E43 Unspecified severe protein-calorie malnutrition; R57.8 Other shock; N17.9 Acute kidney failure, unspecified; K52.9 Noninfective gastroenteritis and colitis, unspecified; M43.26 Fusion of spine, lumbar region; I95.9 Hypotension, unspecified; E86.0 Dehydration; F03.90 Unspecified dementia, unspecified severity, without behavioral disturbance, psychotic disturbance, mood disturbance, and anxiety; I73.9 Peripheral vascular disease, unspecified; Z88.2 Allergy status to sulfonamides; Z88.1 Allergy status to other antibiotic agents; Z88.8 Allergy status to other drugs, medicaments and biological substances; Z79.82 Long term (current) use of aspirin; Z79.899 Other long term (current) drug therapy; Z66 Do not resuscitate; E78.5 Hyperlipidemia, unspecified; E78.2 Mixed hyperlipidemia; D72.829 Elevated white blood cell count, unspecified; R53.1 Weakness

== ENCOUNTER 2019-09-08 10:05 | Emergency (ER) | payer MEDICARE ==
[~2019-09-08] VITALS: Ht 165.1 cm; Wt 55.1 kg
[~2019-09-08 10:05] MED LIST changes: +ECOT81TA5 PO; +ENAL10TA2 PO; +PRAV20TA2 PO
[2019-09-08] MEDS ORDERED: MAPA500C PO (10:43)
[2019-09-08 10:47] LABS: BASO # 0.1 10^3/uL (0.0-0.2); BASO % 0.7 % (0.0-1.0); EOS # 0.2 10^3/uL (0.0-0.5); EOS % 1.7 % (0.0-3.0); HEMATOCRIT 37.8 % (36.0-47.0); HEMOGLOBIN 12.2 g/dl (12.0-15.5); LYMPH # 2.2 10^3/uL (1.5-5.0); LYMPH % 25.2 % (24.0-44.0); MEAN CORPUSCULAR HGB CONC 32.3 g/dl (32.0-36.5); MEAN CORPUSCULAR VOLUME 86.9 fl (80.0-96.0); MONO # 0.4 10^3/uL (0.0-0.8); MONO % 4.7 % (0.0-5.0); NEUTROPHILS # 5.8 10^3/uL (1.5-8.5); NEUTROPHILS % 67.2 % (36.0-66.0); PLATELET COUNT, AUTOMATED 259 10^3/uL (150-450); RED BLOOD COUNT 4.35 10^6/uL (4.00-5.40); WHITE BLOOD COUNT 8.7 10^3/uL (4.0-10.0)
[2019-09-08 11:30] LABS: ALBUMIN 3.2 GM/DL (3.2-5.2); ALT/SGPT 48 U/L (12-78); BILIRUBIN,DIRECT < 0.1 MG/DL (0.0-0.2); BILIRUBIN,TOTAL 0.3 MG/DL (0.2-1.0); BLOOD UREA NITROGEN 17 MG/DL (7-18); CALCIUM LEVEL 9.5 MG/DL (8.8-10.2); CARBON DIOXIDE LEVEL 28 MEQ/L (21-32); CHLORIDE LEVEL 106 MEQ/L (98-107); CK-MB VALUE MASS 1.3 NG/ML (<3.6); CPK CREATINE PHOSPHOKINASE 93 U/L (26-192); GLOMERULAR FILTRATION RATE > 60.0 (>45); GLUCOSE, FASTING 84 MG/DL (70-100); POTASSIUM SERUM 4.1 MEQ/L (3.5-5.1); SODIUM LEVEL 139 MEQ/L (136-145); TOTAL PROTEIN 7.1 GM/DL (6.4-8.2); TROPONIN I < 0.02 NG/ML (< 0.10)
--- NOTE | 2019-09-08 12:00 | REP ---
CT BRAIN WITHOUT CONTRAST: HISTORY: Altered mental status. Comparison brain MRI study is from May 04, 2016. CT FINDINGS: Digital preliminary community service representative radiograph is unremarkable. Bone window settings demonstrate an intact bony calvarium. No intraorbital abnormality is seen. There is a 1.5 cm mucous retention cyst in the left maxillary sinus. On soft tissue window settings, there is moderate generalized volume loss unchanged from the comparison MRI study. There is no evidence of intracranial hemorrhage. No acute infarction is seen. No extra-axial fluid collection or midline shift is seen. Vascular calcification is noted at the distal vertebral and carotid arteries. IMPRESSION: Vascular calcification and generalized volume loss. No acute intracranial abnormality. Electronically Signed by Bandar Andujar MD 09/08/2019 02:57 P
--- NOTE | 2019-09-08 12:03 | REP ---
REASON: Altered mental status. FINDINGS: The technique utilized in obtaining the radiograph has magnified the cardiac silhouette and accentuated the interstitial markings. The superior mediastinal structures are midline. The cardiac silhouette is unremarkable in size, shape, and position. The diaphragmatic surfaces of the lungs are regular, and the costophrenic angles are clear. The pulmonary davis are clear. The imaged osseous structures are intact. IMPRESSION: There is no acute cardiopulmonary disease. Electronically Signed by Ubaldo Lugo DO 09/08/2019 04:02 P
[2019-09-08] MEDS ORDERED: cefTRIAXone SOD 1 GM in D5W MINI-BAG PLUS 50 ML IV ONE (13:00)
[2019-09-08] MEDS ORDERED: CEPH250REC PO (13:05)
[2019-09-08 14:01] VITALS: BP 162/70
--- NOTE | 2019-09-08 21:33 | ECGEPIP ---
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
== END 2019-09-08 14:37 | disposition home or self-care (01) ==
LOC: M ED 10:05
DX: R56.9 Unspecified convulsions (principal); N39.0 Urinary tract infection, site not specified; F03.90 Unspecified dementia, unspecified severity, without behavioral disturbance, psychotic disturbance, mood disturbance, and anxiety; I10 Essential (primary) hypertension; M54.9 Dorsalgia, unspecified; R73.03 Prediabetes; Z51.5 Encounter for palliative care
CPT/HCPCS: 51701; 70450; 71045; 80048; 80076; 81001; 82550; 82553; 84443; 84484; 85025; 87088; 87186; 93005; 93041; 94760; 96365; 99285; J0696